=== PATIENT | female | born 1980 | race Caucasian/White ===

== ENCOUNTER → 2018-11-13 | Outpatient (CLI) | payer OTHER ==
[~2018-11-13] MED LIST: ALBU90OI INH; CYCL10 PO; IBUP800 PO; OSEL75CA PO
== END ==
LOC: LAB SHORT 14:49 → LAB EV 14:49
DX: J02.9 Acute pharyngitis, unspecified (principal)
CPT/HCPCS: 87070

== ENCOUNTER → 2020-07-14 | Outpatient (CLI) | payer OTHER | END | disposition home or self-care (01) | LOC: LAB SHORT 19:07 → LAB EV 19:07 | DX: L02.411 Cutaneous abscess of right axilla (principal) | CPT/HCPCS: 87070; 87075; 87205 ==

== ENCOUNTER → 2021-07-04 | Outpatient (CLI) | payer OTHER | LOC: LAB 13:52 → LAB SHORT 13:52 | DX: L02.412 Cutaneous abscess of left axilla (principal); Z91.012 Allergy to eggs | CPT/HCPCS: 87070; 87075; 87205 ==

== ENCOUNTER → 2021-12-28 | Outpatient (CLI) | payer OTHER ==
[2021-12-29 15:12] LABS: HPV 16 Negative (Negative); HPV 18 Negative (Negative); HPV OTHER HR TYPES Negative (Negative)
== END | disposition home or self-care (01) ==
LOC: LAB SHORT 12:00
PROVIDERS: Nurse Practitioner Family
DX: Z01.419 Encounter for gynecological examination (general) (routine) without abnormal findings (principal)
CPT/HCPCS: 87624; G0123

== ENCOUNTER → 2023-10-01 | Outpatient (CLI) | payer OTHER | LOC: LAB SHORT 07:51 → PLD 07:51 | DX: L57.0 Actinic keratosis (principal) | CPT/HCPCS: 88305 ==